=== PATIENT | female | born 1950 | race Hispanic/Latino ===

== ENCOUNTER 2017-01-15 12:59 | Outpatient (CLI) | payer OTHER ==
--- NOTE | 2017-01-15 13:31 | Mammography Report ---
BILATERAL DIGITAL DIAGNOSTIC MAMMOGRAM : 01/15/17 12:59:00 CLINICAL: Recalled for bilateral asymmetries. COMPARISON:[facility] [place] FINDINGS: Lateralmedial and spot compression views were performed. Satisfactory effacement of the previously described asymmetry on the spot views. Lateral views are negative. IMPRESSION: No mammographic evidence of malignancy. BI-RADS CATEGORY: 2 - - Benign RECOMMENDATION: Routine mammographic screening in one year. ACR BI-RADS MAMMOGRAPHIC CODES: 0 = Needs additional imaging evaluation; 1 = Negative; 2 = Benign; 3 = Probably benign; 4 = Suspicious; 5 = Malignant; 6 = Known biopsy-proven malignancy COMMENT: 1. Dense breast tissue, i.e., adenosis, fibrocystic changes, etc., may obscure an underlying neoplasm. 2. Approximately 10% of cancers are not detected with mammography. 3. A negative mammography report should not delay biopsy if a clinically suspicious mass is present. COMMENT: Patient follow-up letters are generated via our [employer] application.
== END 2017-01-15 13:00 | disposition home or self-care (01) ==
LOC: SPVWC 12:59
PROVIDERS: ATTEND Surgery
DX: R92.8 Other abnormal and inconclusive findings on diagnostic imaging of breast (principal)
CPT/HCPCS: 77066; G0204

== ENCOUNTER 2017-12-17 08:10 | Outpatient (CLI) | payer OTHER ==
--- NOTE | 2017-12-19 14:40 | Mammography Report ---
BILATERAL DIGITAL SCREENING MAMMOGRAM with CAD: 12/17/17 08:10:00 CLINICAL: Routine screening. COMPARISON:12/17/16 FINDINGS: The breasts are heterogeneously dense, which may obscure small masses. No mass, architectural distortion or suspicious calcifications. IMPRESSION: No mammographic evidence of malignancy. BI-RADS CATEGORY: 1 - - Negative RECOMMENDATION: Routine mammographic screening in one year. COMMENT: Patient follow-up letters are generated by our [employer] application.
== END 2017-12-17 08:11 | disposition home or self-care (01) ==
LOC: SPVWC 08:10
PROVIDERS: ATTEND Surgery
DX: Z12.31 Encounter for screening mammogram for malignant neoplasm of breast (principal)
CPT/HCPCS: 77067

== ENCOUNTER 2018-12-23 09:26 | Outpatient (CLI) | payer OTHER ==
--- NOTE | 2018-12-23 12:15 | Mammography Report ---
BILATERAL DIGITAL SCREENING MAMMOGRAM WITH CAD, 12/23/2018 INDICATION: Routine screening mammography. TECHNIQUE: Digital bilateral 2D mammography was obtained in the craniocaudal and mediolateral obliq ue projections. This examination was interpreted with the benefit of Computer-aided Detection analysi s. COMPARISON: 12/17/2017 FINDINGS: Breast Density: The breasts are heterogeneously dense, which may obscure small masses. A right asymmetry on the MLO view requires additional imaging. No architectural distortion or suspici ous calcifications. A right outer biopsy clip. The left breast is negative. IMPRESSION: Right asymmetry requiring additional imaging. Recommend recall for right exaggerated CC a nd spot compression MLO views and right breast ultrasound if needed. BI-RADS Category 0: Incomplete. Needs additional imaging evaluation and/or prior mammograms for cindy rison. FURTHER INFORMATION: According to the [employer], yearly mammograms are recommend ed starting at age 40 and continuing as long as a woman is in good health. Clinical Breast Exams shou ld be part of a periodic health exam-about every 3 years for women in their 20s and 30s and every yea r for women 40 and over. Breast self exam is an option for women starting in their 20s. Any breast ch oscar noted on a breast self exam should be reported promptly to the patient's healthcare provider. Br east MRI is recommended for women with an approximately 20-25% or greater lifetime risk of breast can cer, including women with a strong family history of breast or ovarian cancer and women who have been treated for Hodgkin's disease. Signer Name: Taurus Anaya MD Signed: 12/23/2018 1:11 PM Workstation Name: [id number]
--- NOTE | 2018-12-23 14:26 | Mammography Report ---
RIGHT DIGITAL DIAGNOSTIC MAMMOGRAM HISTORY: Asymmetry on screening mammogram. COMPARISON: 12/23/2018 screening mammogram FINDINGS: Breast Density: Heterogeneously dense. Additional right mammographic views were performed and are negative. IMPRESSION: No mammographic evidence of malignancy. If the clinical examination remains stable, recommend bilate ral mammogram in approximately one year. BIRADS 1: Negative. FURTHER INFORMATION: According to the [employer], yearly mammograms are recommend ed starting at age 40 and continuing as long as a woman is in good health. Clinical Breast Exams shou ld be part of a periodic health exam-about every 3 years for women in their 20s and 30s and every yea r for women 40 and over. Breast self exam is an option for women starting in their 20s. Any breast ch oscar noted on a breast self exam should be reported promptly to the patient's healthcare provider. Br east MRI is recommended for women with an approximately 20-25% or greater lifetime risk of breast can cer, including women with a strong family history of breast or ovarian cancer and women who have been treated for Hodgkin's disease. A negative Mammography report should not discourage follow up or biopsy of a clinically significant f inding and/or abnormality. Dense breast tissue may obscure small neoplasms. The patient will be entered into a reminder system with a target due date for the next screening mamm ogram. Signer Name: Taurus Anaya MD Signed: 12/23/2018 3:22 PM Workstation Name: [id number]
== END 2018-12-23 09:27 | disposition home or self-care (01) ==
LOC: SPVWC 09:26
PROVIDERS: ATTEND Surgery
DX: Z12.31 Encounter for screening mammogram for malignant neoplasm of breast (principal)
CPT/HCPCS: 77067

== ENCOUNTER 2019-01-28 11:17 | Outpatient (CLI) | payer OTHER ==
--- NOTE | 2019-01-28 13:09 | Mammography Report ---
DEXA BONE DENSITY SCAN INDICATION: POSTMENOPAUSAL. COMPARISON: Prior DEXA scan, 12/07/2014 LUMBAR SPINE (L1-L4): Bone mineral density (BMD) is 1.015 g/cm2. T-score is -0.3 (standard deviations of Young Adult mean). Z-score is 1.7 (standard deviations of Age Matched mean). LEFT FEMORAL NECK: Bone mineral density (BMD) is 0.619 g/cm2. T-score is -2.1 (standard deviations of Young Adult mean). Z-score is -0.3 (standard deviations of Age Matched mean). IMPRESSION: 1. Left femoral neck: WHO Classification: Osteopenia. Fracture Risk: Increased. 2. Lumbar spine: WHO Classification: Normal. Fracture Risk: Not increased. 3. Compared with the prior DEXA scan of 12/07/2014 there has been a 0.1% increase in the BMD of the le ft femoral neck, and a 2.1% decrease in the BMD of the lumbar spine. Signer Name: Minnie Yu MD Signed: 01/28/2019 1:04 PM Workstation Name: [id number]
== END 2019-01-28 11:18 | disposition home or self-care (01) ==
LOC: SPVWC 11:17
PROVIDERS: ATTEND Physician Assistant Medical
DX: Z78.0 Asymptomatic menopausal state (principal)
CPT/HCPCS: 77080

== ENCOUNTER 2019-05-11 09:13 | Outpatient (CLI) | payer OTHER ==
--- NOTE | 2019-05-11 11:07 | Ultrasound Report ---
ULTRASOUND ABDOMEN, COMPLETE INDICATION: MACROCYTOSIS/MYELODYSPLASTIC SYNDROME. COMPARISON: No relevant prior imaging study available. FINDINGS: Pancreas: Normal. Abdominal Aorta: No significant abnormality. IVC: No significant abnormality. Liver: The liver measures 13 cm in length. No significant abnormality. Gallbladder: Normally distended with no stones. Bile ducts: Normal. Common bile duct measures 4.3 mm. Kidneys: Right: 10.6 cm in length. A right lower pole cyst measures 2.1 cm. The right kidney is oth erwise normal. Left: 9.3 cm in length. No significant abnormality. Renal collecting systems and ure ters are nondilated. Spleen: Multiple echogenic foci in the spleen consistent with calcified granulomata. The spleen measu res 8 cm maximum dimension. Free fluid: None. Additional Findings: None. IMPRESSION: 1. Old granulomatous disease with calcified splenic granulomata. The spleen is otherwise normal. 2. A 2.1 cm benign cyst of the lower pole right kidney. Signer Name: Taurus Anaya MD Signed: 05/11/2019 11:03 AM Workstation Name: [id number]
== END 2019-05-11 09:14 | disposition home or self-care (01) ==
LOC: SPVWC 09:13
PROVIDERS: ATTEND Internal Medicine Hematology & Oncology
DX: N28.1 Cyst of kidney, acquired (principal); D75.89 Other specified diseases of blood and blood-forming organs; D46.9 Myelodysplastic syndrome, unspecified; D69.6 Thrombocytopenia, unspecified
CPT/HCPCS: 76700

== ENCOUNTER 2022-03-07 08:34 | Outpatient (CLI) | payer OTHER ==
--- NOTE | 2022-03-07 09:58 | Mammography Report ---
DEXA BONE DENSITY SCAN INDICATION / CLINICAL INFORMATION: POSTMENOPAUSE Z78.0. 71 years Female COMPARISON: 01/28/2019. LUMBAR SPINE, L4: - Bone mineral density (BMD) = 1.009 g/cm2. - T-score = -0.4 - Change (%) since most recent prior (if available): -0.6 LEFT HIP, NECK : - Bone mineral density (BMD) = 0.617 g/cm2. - T-score = -2.1 - Change (%) since most recent prior (if available): 3.2 IMPRESSION: 1. WHO Classification: Osteopenia. Fracture Risk: Increased. FRAX generally not reported for patients with normal or osteoporotic BMD, in swv-uaiidpi-tekecoz becky ents younger than age 50, or in patients undergoing pharmacotherapy BMD Reporting Guidelines (ISCD, 2015) BMD Reporting in Postmenopausal Women and in Men Age 50 and Older - T-scores are preferred. - The WHO densitometric classification is applicable. BMD Reporting in Females Prior to Menopause and in Males Younger Than Age 50 - Z-scores, not T-scores, are preferred. This is particularly important in children. - A Z-score of -2.0 or lower is defined as below the expected range for age, and a Z-score above -2.0 is within the expected range for age. - Osteoporosis cannot be diagnosed in men under age 50 on the basis of BMD alone. - The WHO diagnostic criteria may be applied to women in the menopausal transition. http://www.iscd.org/official-positions/9593-edfl-zaaxbxmo-positions-adult/ Signer Name: Allan Vickers MD Signed: 03/07/2022 9:54 AM Workstation Name: [id number]
--- NOTE | 2022-03-07 10:27 | Mammography Report ---
DIGITAL SCREENING MAMMOGRAM WITH CAD, 03/07/2022 CLINICAL INFORMATION / INDICATION: Routine screening mammography. TECHNIQUE: Digital bilateral 2D mammography was obtained in the craniocaudal and mediolateral oblique projections. This examination was interpreted with the benefit of Computer-Aided Detection analysis. COMPARISON: 12/17/2017 through 11/09/2019. FINDINGS: Breast Density: The breasts are heterogeneously dense, which may obscure small masses. No dominant mass, suspicious calcifications, or architectural distortion in either breast. There is a right biopsy clip. Benign-appearing nodularity bilaterally has not changed. IMPRESSION: No mammographic evidence of malignancy. Follow up recommendation: Routine yearly screening mammogram. BI-RADS Category 2: BENIGN. A "normal" or negative report should not discourage follow up or biopsy of a clinically significant f inding. A written summary of these findings will be mailed to the patient. The patient will be entered into a mammography reporting system which will generate a reminder letter for the patient's next appointmen t at the appropriate interval. The [employer] recommends yearly mammograms starting at age 40 and continuing as l minh as a woman is in good health. Breast MRI is recommended for women with an approximate 20-25% or greater lifetime risk of breast cancer, including women with a strong family history of breast or ova ray cancer or who have been treated for Hodgkin's disease. Signer Name: Andrea Staley MD Signed: 03/07/2022 10:23 AM Workstation Name: [id number]
== END 2022-03-07 08:35 | disposition home or self-care (01) ==
LOC: SPVWC 08:34
PROVIDERS: ATTEND Physician Assistant Medical
DX: Z12.31 Encounter for screening mammogram for malignant neoplasm of breast (principal); N64.89 Other specified disorders of breast; M85.88 Other specified disorders of bone density and structure, other site; Z13.820 Encounter for screening for osteoporosis; Z78.0 Asymptomatic menopausal state
CPT/HCPCS: 77067; 77080